=== PATIENT | male | born 1965 | race Caucasian/White ===

== ENCOUNTER → 2017-05-20 | Outpatient (CLI) | payer OTHER ==
[~2017-05-20] MED LIST: ROSU5TAB PO
== END ==
LOC: OIH 14:42
PROVIDERS: ATTEND Family Medicine
DX: Z13.6 Encounter for screening for cardiovascular disorders (principal)
CPT/HCPCS: 75571

== ENCOUNTER 2017-07-18 06:55 | Day surgery (SDC) | payer BC ==
[~2017-07-18] VITALS: Ht 180.3 cm; Wt 116.3 kg
[~2017-07-18 06:55] MED LIST changes: +SODIUM CHLORIDE 0.9% 1000ML 1,000 ML IV ONE
[2017-07-18 07:10] VITALS: BP 156/88
[2017-07-18 07:55] VITALS: BP 115/76
== END 2017-07-18 08:25 | disposition home or self-care (01) ==
LOC: DAH 06:55
PROVIDERS: ATTEND Internal Medicine Gastroenterology
DX: Z12.11 Encounter for screening for malignant neoplasm of colon (principal); Z98.890 Other specified postprocedural states; Z79.899 Other long term (current) drug therapy
CPT/HCPCS: 45378; A4606; J7030